=== PATIENT | female | born 1965 | race Caucasian/White ===

== ENCOUNTER 2018-02-13 15:06 | Outpatient (CLI) | payer OTHER | END 2018-02-13 15:07 | disposition home or self-care (01) | LOC: LAB.F 15:06 | PROVIDERS: ATTEND Nurse Practitioner Family | DX: E55.9 Vitamin D deficiency, unspecified (principal); D51.0 Vitamin B12 deficiency anemia due to intrinsic factor deficiency | CPT/HCPCS: 36415; 82306; 82607 ==

== ENCOUNTER 2018-10-19 10:16 | Outpatient (CLI) | payer OTHER ==
[2018-10-19 18:06] LABS: AMYLASE 49 U/L (28-100); LIPASE 48 U/L (22-51)
[2018-10-19 18:23] LABS: T4 (THYROXINE) 7.42 ug/dL (6.09-12.23)
[2018-10-19 18:26] LABS: THYROID STIMULATING HORMONE 2.97 uIU/mL (0.34-5.60)
== END 2018-10-19 10:17 | disposition home or self-care (01) ==
LOC: LAB.F 10:16
DX: E53.8 Deficiency of other specified B group vitamins (principal); E03.9 Hypothyroidism, unspecified
CPT/HCPCS: 36415; 82150; 82607; 83690; 84436; 84443; 84481; 84482; 86376; 86800

== ENCOUNTER 2019-04-04 09:04 | Outpatient (CLI) | payer OTHER | END 2019-04-04 09:05 | disposition home or self-care (01) | LOC: NS 09:04 | PROVIDERS: ATTEND Internal Medicine Gastroenterology | DX: Z71.3 Dietary counseling and surveillance (principal); K75.81 Nonalcoholic steatohepatitis (NASH) | CPT/HCPCS: 97802 ==

== ENCOUNTER 2020-03-26 10:16 | Emergency (ER) | payer OTHER ==
[2020-03-26] MEDS ORDERED: DEXAMETHASONE 10 MG/ML VIAL PO STA (11:53)
[2020-03-26] MEDS ORDERED: CHERRY SYRUP 10 ML UDC PO ONE (11:53)
--- NOTE | 2020-03-26 11:55 | ED Physician Documentation ---
PD HPI HEENT - Stated complaint Stated Complaint: ALLERGIC REACTION - Chief complaint Chief Complaint: Allergic Rx - History obtained from History obtained from: Patient, Family - History of Present Illness Timing - onset: Last night Timing - duration: Hours Timing - details: Abrupt onset, Still present Location: Throat Improves: Medication Worsens: Swalllowing Associated symptoms: No: Fever, Congestion, Rhinorrhea, Trismus, Unable to swallow, Swollen nodes, Facial swelling, Headache, Cough Similar symptoms before: Diagnosis (allergic reaction) Recently seen: Not recently seen - Additional information Additional information: 55-year-old female with a history of reflux is living in a house with a lot of mold and she has been having some issues with periodic laryngeal spasm and she will have this happen at night and she will wake up short of breath and will have a gravelly voice for 2 to 3 days. Last night she had a particularly bad episode she felt she could not breathe she made it into the bathroom before she collapsed she is uncertain how long she was unconscious. She is able to breathe now still has some symptoms they are much improved and continues to have a gravelly voice. She feels it when she goes to bed at night if she takes Benadryl this will happen less often. She is on omeprazole for her reflux. Review of Systems Constitutional: denies: Fever Eyes: denies: Decreased vision Ears: denies: Ear pain Nose: denies: Rhinorrhea / runny nose, Congestion Throat: reports: Sore throat Cardiac: denies: Chest pain / pressure, Palpitations Respiratory: reports: Dyspnea. 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, Tubal ligation - Allergies Allergies/Adverse Reactions: Allergies Allergy/AdvReac Type Severity Reaction Status Date / Time gluten Allergy Intermediate Cramps Verified 04/09/19 15:57 egg Allergy Hives Verified 04/09/19 16:01 banana AdvReac Cramps Verified 04/09/19 16:01 Beef Containing Products AdvReac Cramps Verified 04/09/19 16:02 milk AdvReac Cramps Verified 04/09/19 15:57 Milk Containing Products AdvReac Cramps Verified 04/09/19 15:58 pineapple AdvReac Itching Verified 04/09/19 15:59 soy AdvReac Cramps Verified 04/09/19 15:58 - Social History Does the pt smoke?: No Smoking Status: Never smoker Does the pt drink ETOH?: No Does the pt have substance abuse?: No - Immunizations Immunizations are current?: Yes PD ED PE NORMAL - Vitals Vital signs reviewed: Yes (hypertensive) - General General: Alert and oriented X 3, No acute distress, Well developed/nourished - HEENT HEENT: Atraumatic, PERRL, EOMI, Ears normal, Moist mucous membranes, Pharynx benign, Dentition benign - Neck Neck: Supple, no meningeal sign, No bony TTP - Cardiac Cardiac: RRR, No murmur - Respiratory Respiratory: No respiratory distress, Clear bilaterally - Abdomen Abdomen: Soft, Non tender - Back Back: No CVA TTP, No spinal TTP - Derm Derm: Normal color, Warm and dry, No rash - Extremities Extremities: No deformity, No edema - Neuro Neuro: Alert and oriented X 3, roving weight gauger 2-12 intact, No motor deficit, No sensory deficit, Normal speech Eye Opening: Spontaneous Motor: Obeys Commands Verbal: Oriented GCS Score: 15 - Psych Psych: Normal mood, Normal affect Results - Vitals Vitals: Vital Signs - 24 hr 03/26/20 10:24 Temperature 37.0 C Heart Rate 100 Respiratory 20 Rate Blood Pressure 127/99 H O2 Saturation 100 Oxygen O2 Source Room air PD MEDICAL DECISION MAKING - ED course Complexity details: considered differential, d/w patient, d/w family ED course: 54-year-old female with recurrent episodes of laryngeal spasm appears either to have a reaction to the mold in her house or she has perhaps refluxing and aspirating. We have given her a dose of dexamethasone and she is moving out of her home today and will not be involved in the mold further. I have asked her to follow-up with her primary care doctor after she is settled without the mold with any further episodes as this would then be more likely to result from the reflux vs allergy. I have asked her to take the benadryl regularly for now. Departure - Departure Disposition: Home, Self Care Clinical Impression: Laryngeal spasm Condition: Stable Instructions: ED Allergic Reaction General Other Follow-Up: DAKOTAH COTE MD [Primary Care Provider] - Comments: Today you were given a dose of dexamethasone which will help with the swelling around your voice cord over the next day. My recommendation is to follow-up with your primary care doctor if you continue to get these episodes despite moving out of your mold laden home. There is a chance that this may be related to reflux and if it is you may need some changes to your therapy.My recommendation is to continue to take the Benadryl nightly
[2020-03-26 12:44] VITALS: BP 130/89
== END 2020-03-26 12:44 | disposition home or self-care (01) ==
LOC: ED 10:16
DX: J38.6 Stenosis of larynx (principal)
CPT/HCPCS: 99282; A9270